=== PATIENT | female | born 1945 | race Caucasian/White ===

== ENCOUNTER 2020-01-29 02:41 | Observation (INO) | payer MEDICARE, SELFPAY ==
[2020-01-29] VITALS (16 sets, daily range): BP systolic 113–153; BP diastolic 53–71; PULSE 63–133; RESP 18–28; TEMP 35.7–36.9; O2SAT 94–100
--- NOTE | ~2020-01-29 | XR_ITS ---
EXAMINATION: XR chest 1V portable DATE: 01/29/2020 10:02 INDICATION: Shortness of breath. TECHNIQUE: A single frontal view of the chest was obtained. COMPARISON: None. FINDINGS: The chest demonstrates clear lungs without pneumonia, pleural effusion, or pneumothorax. Th e heart size is normal. There are changes of anterior fusion procedure in cervical spine. IMPRESSION: 1. No acute cardiopulmonary disease. Reviewed, dictated and finalized at location A. [facility]OFESSION[facility]
--- NOTE | ~2020-01-29 | US_ITS ---
EXAMINATION: US carotid duplex BI DATE: 01/29/2020 10:57 INDICATION: Dizziness. TECHNIQUE: Grayscale, color Doppler, and pulsed Doppler images of the cervical carotid arteries were obtained. The degree of vessel stenosis is placed in one of the following categories: normal, <50%, 5 0-69%, >=70% but less than near-occlusion, near-occlusion, or total occlusion. Note that percent sten osis relative to normal distal artery lumen diameter is indirectly measured from velocity measurement s as described by Asad, et al. Radiology 2003; 229:340-346. COMPARISON: None. FINDINGS: RIGHT: The right common carotid artery (CCA) peak systolic velocity (PSV) is 113 cm/s. The right internal ca rotid artery (ICA) PSV is 100 cm/s. The right ICA end-diastolic velocity (EDV) is 23 cm/s. The right ICA/CCA PSV ratio is 0.9. Grayscale and color Doppler images yield an estimate of <50% diameter reduc tion from plaque in the ICA. There is antegrade flow in the right vertebral artery. LEFT: The left CCA PSV is 104 cm/s. The left ICA PSV is 110 cm/s. The left ICA EDV is 28 cm/s. The left ICA /CCA PSV ratio is 1.1. Grayscale and color Doppler images yield an estimate of <50% diameter reductio n from plaque in the ICA. There is antegrade flow in the left vertebral artery. IMPRESSION: 1. <50% stenosis in the right internal carotid artery. 2. <50% stenosis in the left internal carotid artery. Reviewed, dictated and finalized at location A. RANGER
--- NOTE | 2020-01-29 02:56 | ADMGEN ---
This patient, Ashlie Quigley, was admitted to IMU Room 213-01 as a direct admit patient from [facility] at 0240. Patient/family oriented to hospital policies and general routines including ID bracelet, bed and alarms, visiting hours, pain management, procedures, bathroom and other care routines, personal items, smoking policy, room service/diet, and visiting hours. Information on how to activate the Rapid Response Team has been discussed. Patient/Family are encouraged to report perceived risks to care and to ask questions if they do not understand what they are told or what they should do.
[2020-01-29 08:43] LABS: Glucose Point of Care 115 (65-105)
[2020-01-29] MEDS: IPRATROPIUM BR 0.02% INH SOLN 0.5 MG/2.5 ML VIAL INHALATION ×2 (09:16→14:49)
[2020-01-29] MEDS: ALBUTEROL SULFATE NEB 2.5 MG/0.5 ML INH INHALATION ×2 (09:16→14:49)
--- NOTE | 2020-01-29 13:02 | PM.CNCAR ---
Assessment and Plan Assessment and plan (1) Elevated troponin: Code(s): R77.8 - Other specified abnormalities of plasma proteins Status: Acute Assessment and Plan: No clear symptoms suggestive of angina. Elevated troponin consistent with possible NSTEMI without ischemic changes. No documented hypotension tachy and/or Ean arrhythmia. Patient without anginal symptoms at this time. No known underlying CAD, however, patient has multiple risk factors for CAD. Patient currently relatively asymptomatic. Repeat troponin. Repeat 12 lead EKG. 2D echocardiogram pending. Systemic anticoagulation would be advised, however, given thrombocytopenia and outside notes indicative of high risk for esophageal varices but none documented. No history of esophageal or variceal bleed. COVID is pending may also be explanation if positive as she was in quarantine with her who had already tested positive. Further recommendation to follow after review of echocardiogram. No plans for invasive angiography at this time provided patient remains relatively asymptomatic and hemodynamically stable. 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 Stable 97,000 outside hospital. No evidence of active bleed. Continue to monitor. SCDs for DVT prophylaxis. Non selective beta-calvin given cirrhosis history. Follow H&H as well. (3) Syncope: Code(s): R55 - Syncope and collapse Status: Acute Assessment and Plan: Etiology unclear, however, most likely vasovagal in setting of COPD exacerbation coughing and/or hypoxia. COVID pending which may also be primary contributor in this regard. (4) Exposure to COVID-19 virus: Code(s): Z20.828 - Contact with and (suspected) exposure to other viral communicable diseases Status: Acute Assessment and Plan: She was in quarantine at home with her who had tested positive for COVID-19. (5) Hypertension: Code(s): I10 - Essential (primary) hypertension Status: Acute Assessment and Plan: Elevated but stable. Continue home antihypertensives. (6) History of pulmonary embolism: Code(s): Z86.711 - Personal history of pulmonary embolism Status: Acute Assessment and Plan: D-dimer unremarkable outside hospital 504 upper limit listed as 600. She has a history of recurrent PE apparently but is not on anticoagulation many years per her account of either noncompliance or inability to adequately maintained follow-up. (7) COPD (chronic obstructive pulmonary disease): Code(s): J44.9 - Chronic obstructive pulmonary disease, unspecified Status: Acute Assessment and Plan: Per primary service. History of Present Illness History of Present Illness Consult date/time: Date of service: 01/29/20 13:02 Cardiology consultation at the request of Dr. Klein of the [facility] service for our opinion regarding elevated troponin. Requesting physician: Bruno Klein MD Consult reason: Other (Elevated troponin) Reason For Visit: Elevated Troponin/COPD Narrative: Patient is a 74-year-old female with a history of hypertension, COPD, dyslipidemia, diabetes mellitus, morbid obesity, history of remote pulmonary embolism, cirrhosis with chronic thrombocytopenia who was transferred from [facility] for shortness of breath and syncope. Patient states she had been coughing not feeling well began to feel progressively weak and dizzy and then felt like she was going to pass out. She subsequently briefly lost consciousness and upon awakening felt nauseous and vomited. An ambulance was summoned to help her up and transferred to the hospital. She complained of feeling weak and nauseous at that time but denied chest pain. She has been complaining of shortness of breath increased cough an
[2020-01-29 14:34] LABS: Glucose Point of Care 108 (65-105)
[2020-01-29 14:45] LABS: Basophils Percent Auto 0.2 % (0.2-1.2); Eosinophils Absolute Auto 0.1 K/mm3 (0-0.3); Eosinophils Percent Auto 2.3 % (0-4.4); Hematocrit 37.5 % (37.0-47.0); Hemoglobin 12.4 g/dL (12.0-15.0); Immature Granulocyte Absolute 0.07 K/mm3 (0.00-0.031); Immature Granulocyte Percent A 1.3 % (0-0.5); Immature Platelet Fraction Pct 5.2 % (0.9-11.2); Lymphocytes Absolute Auto 0.92 K/mm3 (0.9-3.2); Lymphocytes Percent Auto 17.5 % (18.3-44.2); Mean Corpuscular HGB Conc 33.1 g/dl (32-36); Mean Corpuscular Hemoglobin 30.2 pg (26-34); Mean Corpuscular Volume 91.2 fl (80-100); Mean Platelet Volume 11.3 fl (7.4-10.4); Monocytes Absolute Auto 0.6 K/mm3 (0.1-0.6); Monocytes Percent Auto 10.6 % (2.6-8.5); Neutrophils Absolute Auto 3.6 K/mm3 (1.3-6.7); Neutrophils Percent Auto 68.1 % (45.5-73.1); Platelet Count Result 94 k/mm3 (150-375); Red Blood Count 4.11 M/mm3 (4.2-5.4); Red Cell Distribution Width 12.5 % (11.5-14.5); White Blood Count 5.3 K/mm3 (4.5-10.0)
[2020-01-29 15:00] LABS: CRP 0.5 mg/dL (<1.0)
[2020-01-29 15:03] LABS: Alanine Aminotransferase 20 U/L (4-35); Albumin Level 3.5 g/dL (3.5-5.1); Alkaline Phosphatase 66 U/L (38-126); Anion Gap 1 mmol/L (8-16); Aspartate Amino Transferase 39 U/L (14-36); Bilirubin,Total 0.7 mg/dL (0.2-1.3); Blood Urea Nitrogen 11 mg/dL (7-17); Calcium 8.5 mg/dL (8.4-10.2); Carbon Dioxide 37 mmol/L (22-30); Chloride 101 mmol/L (98-107); Estimated Glomerular Filt Rate > 60; Glucose 133 mg/dL (65-105); Magnesium 1.9 mg/dL (1.6-2.3); Potassium 4.2 mmol/L (3.4-5.0); Sodium 139 mmol/L (137-145)
[2020-01-29 15:17] LABS: Troponin I 0.272 ng/mL (0.000-0.034)
--- NOTE | 2020-01-29 17:45 | PM.IMHP ---
H&P: HPI History of Present Illness Date/Time: 01/29/20 17:45 Chief complaint: Elevated Troponin/COPD Narrative: Ashlie Quigley is a 74 year old female patient initially was seen at the outside facility she presented with complaint of dizziness nausea and vomiting patient initial tropes were elevated at the outside facility and patient was transfer to the hospital as they do not have bridal consultant, patient states this he felt dizzy was nauseated family called EMS. 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 Patient initial tropes are elevated 0.490, trending down to 0.272 will trend tropes, patient is seen by bridal consultant because of patient thrombocytopenia, esophageal varices and history of liver cirrhosis currently patient is not anticoagulated, to further evaluate patient a cardiac echo is pending, carotid ultrasound are negative for any stenosis, will follow-up on COVID test and further recommendation to follow. Once clinically stable will have a PT OT evaluate the patient. Review of Systems Review of Systems: All systems reviewed & are unremarkable except as noted in HPI and below PMFSH Past Medical History Medical History Cirrhosis COPD (chronic obstructive pulmonary disease) Diabetes mellitus Elevated troponin Exposure to COVID-19 virus History of pulmonary embolism Hypertension Syncope Thrombocytopenia Family History Family History Mother Uterine cancer FHx: sudden cardiac (SCD) Father Cerebrovascular accident Sibling AVM (arteriovenous malformation) Social History Social History Smoking status: Former smoker Alcohol intake: never Substance use: never Substance use type: does not use Gender identity (if verbalized by the patient): Female Spiritual care concerns: No Meds Home Medications and Allergies Home Medications Medication Instructions Recorded Confirmed Type albuterol sulfate [Ventolin HFA] 2 puff INHALATION Q4H PRN 01/29/20 01/29/20 History fluticasone furoate-vilanterol 1 inh INHALATION DAILY 01/29/20 01/29/20 History [Breo Ellipta] ipratropium-albuterol 3 ml INHALATION Q4H PRN 01/29/20 01/29/20 History lisinopril 10 mg PO DAILY 01/29/20 01/29/20 History metformin 500 mg PO BID 01/29/20 01/29/20 History propranolol 20 mg PO BID 01/29/20 01/29/20 History sertraline 25 mg PO HS 01/29/20 01/29/20 History sertraline 75 mg PO DAILY 01/29/20 01/29/20 History simvastatin 10 mg PO DAILY 01/29/20 01/29/20 History Allergies Allergy/AdvReac Type Severity Reaction Status Date / Time No Known Allergies Allergy Verified 01/29/20 04:25 Vital Signs Vital Signs - 24 hr 01/29/20 02:45 01/29/20 04:00 01/29/20 06:00 Temperature Pulse Rate 83 76 79 Respiratory Rate Blood Pressure Pulse Oximetry 99 99 01/29/20 07:06 01/29/20 09:18 01/29/20 09:30 Temperature 97.4 F L Pulse Rate 86 125 H 133 H Respiratory Rate 20 28 H 28 H Blood Pressure 153/59 H
[2020-01-29 19:16] LABS: SARS-CoV-2 RNA PCR Negative
[2020-01-29 21:44] LABS: Glucose Point of Care 154 (65-105)
[2020-01-29] MEDS: ONDANSETRON INJ 4 MG/2 ML VIAL IV PUSH (23:44)
[2020-01-30] VITALS (18 sets, daily range): BP systolic 140–165; BP diastolic 58–92; PULSE 63–84; RESP 18–24; TEMP 35.7–36.2; O2SAT 93–100
--- NOTE | 2020-01-30 | ECHO_ITS ---
Patient Info Name: Ashlie Quigley Age: 74 years : 1945 Gender: Female Ht: 59 in Wt: 247 lbs BSA: 2.24 m2 HR: 85 bpm BP: 142 / 60 mmHg Heart Rhythm: Sinus Rhythm Technical Quality: Good Exam Date: 01/30/2020 9:48 AM Exam Location: [facility] Pulmonary Exam Room: [facility] Patient Status: Inpatient Admit Date: 01/29/2020 Staff Ordering Physician: Laron Wall MD Jewel Waxer: Radha Elliott RDCS Attending Provider: Bruno Klein MD Exam Type: CA echo doppler color flow Study Info Indications - elevated trops Complete two-dimensional, color flow and Doppler transthoracic echocardiogram is performed. Summary 1. Left ventricular systolic function is normal, estimated at 65-70%. 2. There is mildly increased left ventricular wall thickness. 3. The left ventricular diastolic function is grade I diastolic dysfunction. 4. There is borderline aortic valve stenosis. 5. There is trace mitral valve regurgitation. 6. There is trace tricuspid valve regurgitation. 7. No pulmonary hypertension, estimated pulmonary arterial systolic pressure is 31 mmHg. Left Ventricle Left ventricular chamber dimension is normal. Left ventricular systolic function is normal, estimated at 65-70%. There is mildly increased left ventricular wall thickness. The left ventricular diastolic function is grade I diastolic dysfunction. Right Ventricle Right ventricular chamber dimension is normal. Right ventricular systolic function is normal. Left Atria Left atrial chamber dimension is mildly enlarged. Right Atria Right atrial chamber dimension is mildly enlarged. Aortic Valve The aortic valve is trileaflet. There is borderline aortic valve stenosis. There is no aortic valve regurgitation. There is mild aortic valve calcification. Pulmonic Valve The pulmonic valve is not well visualized. Mitral Valve The mitral valve has thickened leaflets. There is trace mitral valve regurgitation. The mitral valve annulus is mildly calcified. Tricuspid Valve The tricuspid valve leaflets are normal. There is trace tricuspid valve regurgitation. No pulmonary hypertension, estimated pulmonary arterial systolic pressure is 31 mmHg. Pericardium/Pleural The pericardium appears normal. There is no pericardial effusion. Inferior Vena Cava Normal inferior vena cava with <50% collapse upon inspiration consistent with elevated right atrial pressure, 10 mmHg. Aorta The aortic root size at the sinus of Valsalva is normal. Left Ventricular Outflow Tract Name Value Normal LVOT 2D LVOT Diameter 2.0 cm LVOT Doppler LVOT Peak Gradient 7 mmHg LVOT Mean Gradient 5 mmHg LVOT VTI 32 cm LVOT VTI/AV VTI Ratio 0.8 LVOT Stroke Volume 97 ml LVOT CO 20.4 l/min LVOT CI 9.1 l/min/m2 Pulmonic Valve Name Value
[2020-01-30 04:55] LABS: Hematocrit 38.7 % (37.0-47.0); Hemoglobin 12.7 g/dL (12.0-15.0); Immature Platelet Fraction Pct 6.6 % (0.9-11.2); Mean Corpuscular HGB Conc 32.8 g/dl (32-36); Mean Corpuscular Hemoglobin 30.5 pg (26-34); Platelet Count Result 102 k/mm3 (150-375); Red Blood Count 4.16 M/mm3 (4.2-5.4); Red Cell Distribution Width 12.6 % (11.5-14.5); White Blood Count 5.8 K/mm3 (4.5-10.0)
[2020-01-30 07:09] LABS: Alanine Aminotransferase 20 U/L (4-35); Alkaline Phosphatase 64 U/L (38-126); Anion Gap 4 mmol/L (8-16); Aspartate Amino Transferase 42 U/L (14-36); Blood Urea Nitrogen 11 mg/dL (7-17); Calcium 8.7 mg/dL (8.4-10.2); Carbon Dioxide 36 mmol/L (22-30); Chloride 98 mmol/L (98-107); Estimated CRCL calculation 86 ml/min; Estimated Glomerular Filt Rate > 60; Glucose 128 mg/dL (65-105); Potassium 4.1 mmol/L (3.4-5.0); Sodium 138 mmol/L (137-145)
[2020-01-30] MEDS: ONDANSETRON INJ 4 MG/2 ML VIAL IV PUSH (07:12)
[2020-01-30] MEDS: IPRATROPIUM BR 0.02% INH SOLN 0.5 MG/2.5 ML VIAL INHALATION (08:26)
[2020-01-30] MEDS: ALBUTEROL SULFATE NEB 2.5 MG/0.5 ML INH INHALATION (08:26)
[2020-01-30 09:05] LABS: Glucose Point of Care 122 (65-105)
--- NOTE | 2020-01-30 09:11 | ECG_ITS ---
Measurements Intervals [place] Rate: 86 P: 57 CO: 164 QRS: 9 QRSD: 98 T: 55 QT: 379 QTc: 453 Interpretive Statements SINUS RHYTHM DELAYED PRECORDIAL R/S TRANSITION BORDERLINE ECG Electronically Signed On 01-30-2020 9:58:43 PAINTER [employer]DNANCE by Thien Mccormack D.O.
--- NOTE | 2020-01-30 09:44 | PM.PNCARD ---
Progress Note: A&P Assessment and Plan (1) Elevated troponin: Code(s): R77.8 - Other specified abnormalities of plasma proteins Status: Acute Assessment and Plan: No clear symptoms suggestive of angina, nausea may be anginal equivalent but more likely GI etiology. Elevated troponin consistent with possible NSTEMI without ischemic EKG changes, atypical sxs, downward Trop I trend yesterday. No documented hypotension, tachy and/or Ean arrhythmia as explanation for sxs, probable vasovagal syncope. No known underlying CAD, however, patient has multiple risk factors for CAD. Repeat 12 lead EKG and obtain 2D echocardiogram, which are pending. Recommendations to follow after review. Systemic anticoagulation would be advised, however, given thrombocytopenia and outside notes indicating of high risk for esophageal varices (cirrhosis, thrombocytopenia, mild portal hypertension), but no prior documented history of varices or bleeding. -Observe tolerance with ASA 81mg daily. DVT prophylaxis, SCD's. Further recommendation to follow after review of echocardiogram. Pt at elevated bleeding risk given thrombocytopenia, cirrhosis if PCI requiring DAPT. Conservative management as appropriate. -Ischemic evaluation discussed, may be best to start with noninvasive depending on clinical status. Timing recommendations to follow pending review of Echo and pt's clinical status. 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 Stable 97,000 outside hospital, 102 today. No evidence of active bleed. Continue to monitor. SCDs for DVT prophylaxis. Non selective beta-calvin given cirrhosis history. Follow H&H as well. Observe tolerance with ASA 81mg daily. (3) Syncope: Code(s): R55 - Syncope and collapse Status: Acute Assessment and Plan: Etiology unclear, however, most likely vasovagal in setting of COPD exacerbation coughing and/or hypoxia. (4) Cirrhosis: Code(s): K74.60 - Unspecified cirrhosis of liver Status: Acute Assessment and Plan: Change Propranolol to Coreg 6.25mg BID (nonselective BB) for esophageal variceal risk reduction. (5) Hypertension: Code(s): I10 - Essential (primary) hypertension Status: Acute Assessment and Plan: Elevated but stable. Continue home antihypertensives. (6) COPD (chronic obstructive pulmonary disease): Code(s): J44.9 - Chronic obstructive pulmonary disease, unspecified Status: Acute Assessment and Plan: Per primary service. (7) Diabetes mellitus: Code(s): E11.9 - Type 2 diabetes mellitus without complications Status: Acute (8) History of pulmonary embolism: Code(s): Z86.711 - Personal history of pulmonary embolism Status: Acute Assessment and Plan: D-dimer unremarkable outside hospital 504 upper limit listed as 600. She has a history of recurrent PE apparently but is not on anticoagulation many years per her account of either noncompliance or inability to adequately maintained follow-up. (9) Exposure to COVID-19 virus: Code(s): Z20.828 - Contact with and (suspected) exposure to other viral communicable diseases Status: Acute Assessment and Plan: She was in quarantine at home with her who had tested positive for COVID-19 but she is COVID NEGATIVE Subjective Date/time seen: Date of service: 01/30/20 09:44 Follow-up for elevated troponin, shortness of breath Troponin trending downward. Repeat EKG pending. Echocardiogram has not yet been performed. Patient states she feels better today but still noted some nausea beginning last night. Able to eat little bit of dinner, no emesis. Still feels slightly nauseous this morning 8 a small amount of breakfast. No palpitations. Not short of breath lying in bed. Noted indigestion w
[2020-01-30 10:29] LABS: Cholesterol 206 mg/dL (0-200); HDL Direct 66 mg/dL; Triglycerides 131 mg/dL (<150)
[2020-01-30 10:40] LABS: LDL Cholesterol Direct 100 mg/dL
[2020-01-30] MEDS: carvediloL 6.25 MG TABLET PO ×2 (11:36→20:53)
[2020-01-30] MEDS: ASPIRIN 81 MG ENTERIC TABLET PO (11:36)
[2020-01-30] MEDS: SIMVASTATIN 10 MG TABLET PO (11:37)
[2020-01-30 12:17] LABS: Glucose Point of Care 165 (65-105)
[2020-01-30 17:27] LABS: Glucose Point of Care 114 (65-105)
--- NOTE | 2020-01-30 17:56 | PM.IMPN ---
Progress Note: A&P Assessment and Plan (1) Elevated troponin: Code(s): R77.8 - Other specified abnormalities of plasma proteins Status: Acute Assessment and Plan: 01/30/20 17:56 Ashlie Quigley is a 74 year old female patient initially was seen at the outside facility she presented with complaint of dizziness nausea and vomiting patient initial tropes were elevated at the outside facility and patient was transfer to the hospital as they do not have sample carrier, patient states this she felt dizzy was nauseated family called EMS. 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 Patient initial tropes were elevated 0.490, trending down to 0.272 will trend tropes, patient is seen by sample carrier because of patient thrombocytopenia, esophageal varices and history of liver cirrhosis currently patient is not anticoagulated, to further evaluate patient a cardiac echo is pending, carotid ultrasound are negative for any stenosis, patient seen by Cardiology and further recommendation to follow, will have a PT OT evaluate the patient patient will benefit from acute rehab. (2) Exposure to COVID-19 virus: Code(s): Z20.828 - Contact with and (suspected) exposure to other viral communicable diseases Status: Acute Assessment and Plan: COVID test is negative (3) Diabetes mellitus: Code(s): E11.9 - Type 2 diabetes mellitus without complications Status: Acute Assessment and Plan: Will continue home regimen and monitor with sliding scale (4) Thrombocytopenia: Code(s): D69.6 - Thrombocytopenia, unspecified Status: Acute Assessment and Plan: Patient with 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 stable and will monitor (5) Syncope: Code(s): R55 - Syncope and collapse Status: Acute Assessment and Plan: Most likely vasovagal this patient was nauseated and vomiting, Patient carotid ultrasound is negative for any stenosis, follow-up on cardiac, will have a PT OT evaluate the patient (6) COPD (chronic obstructive pulmonary disease): Code(s): J44.9 - Chronic obstructive pulmonary disease, unspecified Status: Acute Assessment and Plan: Clinically stable will continue updraft (7) Cirrhosis: Code(s): K74.60 - Unspecified cirrhosis of liver Status: Acute Assessment and Plan: Patient with history of cirrhosis secondary to Reid patient is seen by hepatology the [facility] (8) History of pulmonary embolism: Code(s): Z86.711 - Personal history of pulmonary embolism Status: Acute Assessment and Plan: Patient with remote history pulmonary emboli has not been taking any anticoagulation patient clinically stable does not appear hypoxic (9) Hypertension: Code(s): I10 - Essential (primary) hypertension Status: Acute Assessment and Plan: Continue home regimen Subjective Date/time seen: 01/30/20 17:56 Ashlie Quigley is a 74 year old female patient initially was seen at the outside facility she presented with complaint of dizziness nausea and vomiting p
[2020-01-30 19:46] LABS: Glucose Point of Care 139 (65-105)
--- NOTE | 2020-01-30 21:25 | PC.NURSE ---
Patient voided and had a BM w/ therapy today.
[2020-01-31] VITALS (10 sets, daily range): BP systolic 134–163; BP diastolic 56–68; PULSE 67–83; RESP 12–20; TEMP 35.7–36.4; O2SAT 93–99
[2020-01-31] MEDS: ACETAMINOPHEN 325 MG TABLET 650 MG PO (02:20)
[2020-01-31] MEDS: ALBUTEROL SULFATE NEB 2.5 MG/0.5 ML INH INHALATION (02:29)
[2020-01-31 05:02] LABS: Hematocrit 35.3 % (37.0-47.0); Hemoglobin 11.7 g/dL (12.0-15.0); Immature Platelet Fraction Pct 7.2 % (0.9-11.2); Mean Corpuscular HGB Conc 33.1 g/dl (32-36); Mean Corpuscular Hemoglobin 30.6 pg (26-34); Mean Corpuscular Volume 92.4 fl (80-100); Mean Platelet Volume 11.3 fl (7.4-10.4); Platelet Count Result 90 k/mm3 (150-375); Red Blood Count 3.82 M/mm3 (4.2-5.4); Red Cell Distribution Width 12.3 % (11.5-14.5); White Blood Count 4.7 K/mm3 (4.5-10.0)
[2020-01-31 05:17] LABS: Alanine Aminotransferase 17 U/L (4-35); Albumin Level 3.3 g/dL (3.5-5.1); Alkaline Phosphatase 54 U/L (38-126); Anion Gap 2 mmol/L (8-16); Aspartate Amino Transferase 32 U/L (14-36); Bilirubin,Total 0.9 mg/dL (0.2-1.3); Blood Urea Nitrogen 10 mg/dL (7-17); Calcium 8.4 mg/dL (8.4-10.2); Carbon Dioxide 38 mmol/L (22-30); Chloride 97 mmol/L (98-107); Estimated CRCL calculation 101 ml/min; Estimated Glomerular Filt Rate > 60; Glucose 135 mg/dL (65-105); Potassium 3.8 mmol/L (3.4-5.0); Sodium 137 mmol/L (137-145)
[2020-01-31] MEDS: SIMVASTATIN 10 MG TABLET PO (09:49)
[2020-01-31] MEDS: ASPIRIN 81 MG ENTERIC TABLET PO (09:49)
[2020-01-31] MEDS: carvediloL 6.25 MG TABLET PO (09:49)
--- NOTE | 2020-01-31 12:18 | PM.PNCARD ---
Progress Note: A&P Assessment and Plan (1) Elevated troponin: Code(s): R77.8 - Other specified abnormalities of plasma proteins Status: Acute Assessment and Plan: No clear symptoms suggestive of angina, nausea may be anginal equivalent but more likely GI etiology. Elevated troponin consistent with possible NSTEMI without ischemic EKG changes, atypical sxs, downward Trop I trend yesterday. No known underlying CAD, however, patient has multiple risk factors for CAD. -12 lead EKG without ischemic changes otherwise unremarkable. 2D echocardiogram personally reviewed EF 60-65% without wall motion abnormalities. -Given circumstances and risk factors advised ischemic evaluation with Lexiscan nuclear stress test for further risk stratification. Again, patient not an ideal candidate for intervention as this would require dual antiplatelet therapy significantly increasing her risk for bleeding given her thrombocytopenia. Patient declines inpatient stress test at this time preferring to obtain as an outpatient. If, however, patient is not stable for discharge from hospitalist service she is willing to undergo Lexiscan stress test tomorrow morning in which case she will need to be kept NPO after midnight. However, patient has clearly stated she would not stay in the hospital specifically for stress test tomorrow morning if she is able to be discharged today. -I expressed my concerns she may have underlying coronary disease is possible explanation for her presentation and increase risk for myocardial infarction and associated complications. Patient verbalized understanding but states she feels so well she wishes to follow up as an outpatient. -continue aspirin, statin. 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 Fairly stable overall without evidence of active bleed. Continue to monitor. SCDs for DVT prophylaxis. Non selective beta-calvin given cirrhosis history. Follow H&H as well. Observe tolerance with ASA 81mg daily. (3) Syncope: Code(s): R55 - Syncope and collapse Status: Acute Assessment and Plan: Etiology unclear, however, most likely vasovagal in setting of COPD exacerbation coughing and/or hypoxia. (4) Cirrhosis: Code(s): K74.60 - Unspecified cirrhosis of liver Status: Acute Assessment and Plan: Change Propranolol to Coreg 6.25mg BID (nonselective BB) for esophageal variceal risk reduction. (5) Hypertension: Code(s): I10 - Essential (primary) hypertension Status: Acute Assessment and Plan: Elevated but stable. Continue home antihypertensives. (6) COPD (chronic obstructive pulmonary disease): Code(s): J44.9 - Chronic obstructive pulmonary disease, unspecified Status: Acute Assessment and Plan: Per primary service. (7) Diabetes mellitus: Code(s): E11.9 - Type 2 diabetes mellitus without complications Status: Acute (8) History of pulmonary embolism: Code(s): Z86.711 - Personal history of pulmonary embolism Status: Acute Assessment and Plan: D-dimer unremarkable outside hospital 504 upper limit listed as 600. She has a history of recurrent PE apparently but is not on anticoagulation many years per her account of either noncompliance or inability to adequately maintained follow-up. (9) Exposure to COVID-19 virus: Code(s): Z20.828 - Contact with and (suspected) exposure to other viral communicable diseases Status: Acute Assessment and Plan: She was in quarantine at home with her who had tested positive for COVID-19 but she is COVID NEGATIVE Subjective Date/time seen: Date of service: 01/31/20 12:18 Follow-up for elevated troponin Patient feels very well. She remains on clear liquid diet. Nausea has resolved as of this morning. No
[2020-01-31 13:59] LABS: Glucose Point of Care 204 (65-105)
--- NOTE | 2020-01-31 14:58 | PM.DS ---
DS: Admitting Diagnosis Admitting Diagnosis Admitting Diagnosis: Elevated Troponin/COPD DS: Discharge Diagnosis Discharge Diagnosis (1) Elevated troponin: Code(s): R77.8 - Other specified abnormalities of plasma proteins Status: Acute Assessment and Plan: 01/30/20 17:56 Ashlie Quigley is a 74 year old female patient initially was seen at the outside facility she presented with complaint of dizziness nausea and vomiting patient initial tropes were elevated at the outside facility and patient was transfer to the hospital as they do not have computer networking instructor, patient states this she felt dizzy was nauseated family called EMS. 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 Patient initial tropes were elevated 0.490, trending down to 0.272 will trend tropes, patient is seen by computer networking instructor because of patient thrombocytopenia, esophageal varices and history of liver cirrhosis currently patient is not anticoagulated, to further evaluate patient a cardiac echo is pending, carotid ultrasound are negative for any stenosis, patient seen by Cardiology and further recommendation to follow, will have a PT OT evaluate the patient patient will benefit from acute rehab. (2) Syncope: Code(s): R55 - Syncope and collapse Status: Acute Assessment and Plan: Most likely vasovagal this patient was nauseated and vomiting, Patient carotid ultrasound is negative for any stenosis, follow-up on cardiac, will have a PT OT evaluate the patient (3) Exposure to COVID-19 virus: Code(s): Z20.828 - Contact with and (suspected) exposure to other viral communicable diseases Status: Acute Assessment and Plan: COVID test is negative (4) Diabetes mellitus: Code(s): E11.9 - Type 2 diabetes mellitus without complications Status: Acute Assessment and Plan: Will continue home regimen and monitor with sliding scale (5) Thrombocytopenia: Code(s): D69.6 - Thrombocytopenia, unspecified Status: Acute Assessment and Plan: Patient with 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 stable and will monitor (6) COPD (chronic obstructive pulmonary disease): Code(s): J44.9 - Chronic obstructive pulmonary disease, unspecified Status: Acute Assessment and Plan: Clinically stable will continue updraft (7) Cirrhosis: Code(s): K74.60 - Unspecified cirrhosis of liver Status: Acute Assessment and Plan: Patient with history of cirrhosis secondary to Reid patient is seen by hepatology the [facility] (8) History of pulmonary embolism: Code(s): Z86.711 - Personal history of pulmonary embolism Status: Acute Assessment and Plan: Patient with remote history pulmonary emboli has not been taking any anticoagulation patient clinically stable does not appear hypoxic (9) Hypertension: Code(s): I10 - Essential (primary) hypertension Status: Acute Assessment and Plan: Continue home regimen DS: Summary Hospital Course Reason for hospitalization: Chief complaint: Elevated Troponin/COPD N
== END 2020-01-31 17:16 | disposition home or self-care (01) ==
PROVIDERS: Internal Medicine Cardiovascular Disease; Admitting Provider Internal Medicine; Visit Provider Family Medicine
DX: R77.8 Other specified abnormalities of plasma proteins (principal); Z20.828 Contact with and (suspected) exposure to other viral communicable diseases; R06.02 Shortness of breath; D69.6 Thrombocytopenia, unspecified; E11.9 Type 2 diabetes mellitus without complications; E78.5 Hyperlipidemia, unspecified; E66.01 Morbid (severe) obesity due to excess calories; I10 Essential (primary) hypertension; J44.9 Chronic obstructive pulmonary disease, unspecified; K75.81 Nonalcoholic steatohepatitis (NASH); K74.60 Unspecified cirrhosis of liver; R55 Syncope and collapse; Z68.41 Body mass index [BMI] 40.0-44.9, adult; Z87.891 Personal history of nicotine dependence; Z86.711 Personal history of pulmonary embolism; Z79.4 Long term (current) use of insulin
CPT/HCPCS: 36415; 71045; 80053; 80061; 83735; 84484; 85025; 85027; 85055; 86140; 87635; 93005; 93306; 93880; 94640; 96374; 96376; 97161; 97165; A9270; C9803; G0378; G0379; J2405; U0003